=== PATIENT | female | born 1985 | race Caucasian/White ===

== ENCOUNTER 2020-11-18 15:15 | Emergency (ER) | payer BC ==
[~2020-11-18] VITALS: Ht 170.2 cm; Wt 83.9 kg
[2020-11-18 16:22] LABS: HEMOGLOBIN 14.2 gm/dl (12.3-15.3); RED BLOOD COUNT 4.88 M/UL (4.00-5.10); WHITE BLOOD COUNT 4.6 K/UL (4.5-11.0)
[2020-11-18 16:41] LABS: BUN/CREATININE RATIO 12 (0-10)
[2020-11-18] MEDS ORDERED: PROAIR HFA8.5 GM INH (18:12)
[2020-11-18] MEDS ORDERED: IBUPROFEN800 MG PO (18:12)
== END 2020-11-18 19:00 | disposition home or self-care (01) ==
LOC: ER1 15:15
PROVIDERS: Physician Assistant
DX: Z23 Encounter for immunization (principal); U07.1 COVID-19; J12.82 Pneumonia due to coronavirus disease 2019; E11.65 Type 2 diabetes mellitus with hyperglycemia; Z88.2 Allergy status to sulfonamides
CPT/HCPCS: 71045; 80053; 83605; 85025; 87040; 99285; J2405; J7030; M0243